=== PATIENT | female | born 1925 | race Caucasian/White ===

== ENCOUNTER → 2016-08-20 | Outpatient (CLI) | payer OTHER ==
--- NOTE | 2016-08-20 14:58 | DX ---
Chest, Two Views - August 20, 2016, at 1428 hours History: Left basilar rales and rhonchi. COPD. Dyspnea. R91.8. Comparison: April 2016. Findings: Cardiac silhouette is mildly enlarged. Atherosclerotic aorta. Previous right breast surge ry. Minimal linear scarring in the lingula. Calcified granulomata throughout both lungs and mediastin um. 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 No pneumonia, congestive heart failure, pleural effusion, or pneumothorax. Impression: 1. No definite pneumonia. 2. Calcified granulomata. 3. Mild cardiomegaly and atherosclerotic aorta without pulmonary edema, pleural effusion or pneumotho rax. Findings and recommendations discussed with Dr. Dev Odom, at 1450 hours today.
== END ==
LOC: FIMAGING 14:20
PROVIDERS: ATTEND Emergency Medicine
DX: R91.8 Other nonspecific abnormal finding of lung field (principal); J44.9 Chronic obstructive pulmonary disease, unspecified; Z85.3 Personal history of malignant neoplasm of breast; I70.0 Atherosclerosis of aorta; I51.7 Cardiomegaly

== ENCOUNTER 2016-08-21 13:42 | Inpatient (IN) | payer OTHER ==
--- NOTE | 2016-08-21 13:47 | EDPHY ---
H & P HPI/ROS: CHIEF COMPLAINT: Weakness HISTORY OF PRESENT ILLNESS: This is an 89-year-old female with a recent pelvic fracture was brought to the emergency room by ambulance. She reports diffuse weakness. Because of her recent pelvic fracture her family has been checking on her frequently, she currently lives alone and is independent. Today she was too weak to use her walker on her own and get to the bathroom. She feels somewhat short of breath. She has a history of COPD. She has not taken her medications today. She denies cough or chest pain. She has not had headache, sore throat, abdominal pain, vomiting, or diarrhea. She is not experiencing dysuria. Her only other complaint is of a dry mouth. REVIEW OF SYSTEMS: A ten point review of systems was performed and is negative with the exception of the items mentioned in the HPI. Source: Patient, EMS Exam Limitations: No limitations - Medical/Surgical History Hx Asthma: No Hx Chronic Respiratory Disease: Yes Hx Diabetes: Yes Hx Cardiac Disease: Yes Hx Renal Disease: No Hx Cirrhosis: No Hx Alcoholism: No Hx HIV/AIDS: No Hx Splenectomy or Spleen Trauma: No Other PMH: med- Afib, DM, peripheral neuropathy, high cholesterol, GERD, COPD, hypothyroidism, HTN, breast CA, diverticulitis. SURG- right lumpectomy - Social History Smoking Status: Former smoker Additional Social History: Lives independently. - Physical Exam Exam: General Appearance: Alert. Vital signs reviewed. Blood pressure 165/73, respiratory rate 16, heart rate 101, temperature 39.4, room air pulse ox 89%. Eyes: Pupils equal and round, no conjunctival injection, no discharge. Anicteric. ENT, Mouth: Mucous membranes are dry, no oropharyngeal erythema or edema. Neck: No lymphadenopathy, supple. Trachea midline. Respiratory: Right-sided rales/crackles, clear on the left. Cardiovascular: Irregularly irregular. Gastrointestinal: Abdomen is soft with mild diffuse tenderness, no guarding, no masses or organomegaly, bowel sounds normal. Skin: Warm and dry, no rashes on exposed skin, normal color. Back: Nontender to palpation over the thoracolumbar spine. No CVAT. Extremities: Bilateral lower extremity pitting edema, no calf tenderness. Neurological: Alert and oriented. Moving all four extremities easily and equally. Psychiatric: Normal affect. Constitutional: Initial Vital Signs Temperature (C) 39.4 C H 08/21/16 13:45 Heart Rate 101 H 08/21/16 13:45 Respiratory Rate 16 08/21/16 13:45 Blood Pressure 165/73 H 08/21/16 13:45 O2 Sat (%) 89 L 08/21/16 13:45 O2 Delivery Mode Nasal Cannula O2 (L/minute) 2 Allergies/Adverse Reactions: procaine Allergy (Verified 08/21/16 14:02) Sulfa (Sulfonamide Antibiotics) Allergy (Verified 08/21/16 14:02) Home Medications: Medication Instructions Recorded Anastrozole 08/21/16 Atenolol 08/21/16 Digoxin 08/21/16 Dulera 200 Mcg/5 Mcg Inhaler 08/21/16 GABAPENTIN 08/21/16 GLIPIZIDE 08/21/16 Levothyroxine 08/21/16 Omeprazole 08/21/16 Percocet 5-325 mg Tablet 08/21/16 SIMVASTATIN 08/21/16 Warfarin Sodium 08/21/16 Medical Decision Making ED Course/Re-evaluation: 89-year-old female with weakness and fever. Temperature of 39.4 [place] [id number]. She has right-sided crackles and was hypoxic for the paramedics. I suspect pneumonia. She meets criteria for sepsis normal vital signs and infection. She underwent serial evaluations. She herself has no complaints. She is not hypoxic on 2 L nasal cannula. She has remained alert and interactive. Her abdomen was re-examined it is very mildly diffusely tender without guarding or rebound. There is no focal abdominal tenderness. At this point I do not suspect an intra-abdominal infection. 3:30 p.m. Third examination performed. Awaiting results of UA. I reviewed her chest x-ray. She appears to have a right sided infiltrate. I have compared this x-ray to one done yesterday. Clinically, I think that she has pneumonia. Ceftriaxone and azithromycin ordered. She has received 1 L of normal saline IV. Lactic acid is normal. She does not meet criteria for severe sepsis. Influenza testing is negative. She recently moved her care from [place]. Her physician is now Dr. Bryan Roman. Other considerations in this setting of hypoxia include PE (she has a relatively recent pelvic fracture and has been using a walker, so is somewhat immobilized compared to her usual activity level). She does not have calf pain on exam. Negative Homans. She has a history of COPD and COPD exacerbation is another possibility. She is not experiencing chest pain and I do not suspect an acute coronary syndrome. Differential Diagnosis: Fever in adults including but not limited to pneumonia, urinary tract infection , viral syndrome, and influenza. - Data Points Laboratory Results: Laboratory Results 08/21/16 13:48 08/21/16 13:48 08/21/16 08/21/16 08/21/16 15:35 15:10 14:25 WBC RBC Hgb Hct MCV MCH MCHC RDW Plt Count MPV Neut % (Auto) Lymph % (Auto) [place] % (Auto) Eos % (Auto) Baso % (Auto) Nucleat RBC Rel Count Absolute Neuts (auto) Absolute Lymphs (auto) Absolute Monos (auto) Absolute Eos (auto) Absolute Basos (auto) Absolute Nucleated RBC Immature Gran % Immature Gran # PT INR APTT VBG Lactic Acid 1.7 mmol/L (0.7-2.1) Sodium Potassium Chloride Carbon Dioxide Anion Gap BUN Creatinine Estimated GFR Glucose Calcium Total Bilirubin Troponin I Urine Color YELLOW Urine Appearance HAZY Urine pH 7.0 (5.0-7.5) Ur Specific [place] 1.013 (1.002-1.030) Urine Protein NEGATIVE (NEGATIVE) Urine Ketones TRACE H (NEGATIVE) Urine Blood NEGATIVE (NEGATIVE) Urine Nitrate NEGATIVE (NEGATIVE) Urine Bilirubin NEGATIVE (NEGATIVE) Urine Urobilinogen NEGATIVE EU (0.2-1.0) Ur Leukocyte Esterase NEGATIVE (NEGATIVE) Ur Culture Indicated? NOT INDICATED (NI) Urine Glucose NEGATIVE (NEGATIVE) Influenza Typ A,B (DFA) NEGATIVE FOR FLU (NEGATIVE) 08/21/16 08/21/16 13:50 13:48 WBC 15.40 H 10^3/uL (3.80-9.50) RBC 4.13 L 10^6/uL (4.18-5.33) Hgb 13.4 g/dL (12.6-16.3) Hct 38.8 % (38.0-47.0) MCV 93.9 fL (81.5-99.8) MCH 32.4 pg (27.9-34.1) MCHC 34.5 g/dL (32.4-36.7) RDW 14.3 % (11.5-15.2) Plt Count 316 10^3/uL (150-400) MPV 8.6 L fL (8.7-11.7) Neut % (Auto) 85.4 H % (39.3-74.2) Lymph % (Auto) 6.9 L % (15.0-45.0) [place] % (Auto) 6.2 % (4.5-13.0) Eos % (Auto) 0.6 % (0.6-7.6) Baso % (Auto) 0.3 % (0.3-1.7) Nucleat RBC Rel Count 0.0 % (0.0-0.2) Absolute Neuts (auto) 13.13 H 10^3/uL (1.70-6.50) Absolute Lymphs (auto) 1.07 10^3/uL (1.00-3.00) Absolute Monos (auto) 0.96 H 10^3/uL (0.30-0.80) Absolute Eos (auto) 0.10 10^3/uL (0.03-0.40) Absolute Basos (auto) 0.05 10^3/uL (0.02-0.10) Absolute Nucleated RBC 0.00 10^3/uL (0-0.01) Immature Gran % 0.6 % (0.0-1.1) Immature Gran # 0.09 10^3/uL (0.00-0.10) PT 27.9 H SEC (12.0-15.0) INR 2.57 H (0.83-1.16) APTT 34.7 SEC (23.0-38.0) VBG Lactic Acid Sodium 137 mEq/L (134-144) Potassium 3.8 mEq/L (3.5-5.2) Chloride 98 mEq/L (97-110) Carbon Dioxide 29 mEq/l (22-31) Anion Gap 10 mEq/L (8-16) BUN 13 mg/dL (7-23) Creatinine 0.7 mg/dL (0.6-1.0) Estimated GFR > 60 Glucose 163 H mg/dL (70-100) Calcium 9.1 mg/dL (8.5-10.4) Total Bilirubin 1.2 mg/dL (0.1-1.4) Troponin I 0.025 ng/mL (0-0.034) Urine Color Urine Appearance Urine pH Ur Specific [place] Urine Protein Urine Ketones Urine Blood Urine Nitrate Urine Bilirubin Urine Urobilinogen Ur Leukocyte Esterase Ur Culture Indicated? Urine Glucose Influenza Typ A,B (DFA) Medications Given: Discontinued Medications Acetaminophen (Tylenol) 1,000 mg PO EDNOW ONE Stop: 08/21/16 13:59 Last Admin: 08/21/16 14:10 Dose: 1,000 mg Sodium Chloride (Ns) 1,000 mls @ 0 mls/hr IV ONCE ONE PRN Reason: Wide Open Stop: 08/21/16 14:35 Last Admin: 08/21/16 14:36 Dose: 1,000 mls Ceftriaxone Sodium/Dextrose (Rocephin 1 Gm (Premix)) 50 mls @ 100 mls/hr IV EDNOW ONE PRN Reason: Protocol Stop: 08/21/16 16:19 Last Admin: 08/21/16 16:09 Dose: 50 mls Departure - Departure Disposition: [facility] Inpatient Acute Clinical Impression: Pneumonia Qualifiers: Pneumonia type: due to unspecified organism Laterality: right Lung location: middle lobe of lung Qualifier Code: (J18.1) Lobar pneumonia, unspecified organism Condition: Good
[2016-08-21 13:58] LABS: % IMMATURE GRANULYOCYTES 0.6 % (0.0-1.1); ABSOLUTE IMMATURE GRANULOCYTES 0.09 10^3/uL (0.00-0.10); ADD DIFF? NO; ADD MORPH? NO; ADD SCAN? NO; ATYPICAL LYMPHOCYTE FLAG 0 (0-99); FRAGMENT RBC FLAG 0 (0-99); HEMATOCRIT 38.8 % (38.0-47.0); HEMOGLOBIN 13.4 g/dL (12.6-16.3); LEFT SHIFT FLG 10 (0-99); LIPEMIA HEMOLYSIS FLAG 90 (0-99); MEAN CELL HEMOGLOBIN 32.4 pg (27.9-34.1); MEAN CELL HEMOGLOBIN CONCENTR. 34.5 g/dL (32.4-36.7); MEAN CELL VOLUME 93.9 fL (81.5-99.8); MEAN PLATELET VOLUME 8.6 fL (8.7-11.7); PLATELET CLUMPS FLAG 10 (0-99); PLATELET COUNT 316 10^3/uL (150-400); RED BLOOD CELL COUNT 4.13 10^6/uL (4.18-5.33); RED CELL DISTRIBUTION WIDTH 14.3 % (11.5-15.2)
[2016-08-21] MEDS ORDERED: ACETAMINOPHEN 500 MG TAB PO ONE (13:58)
--- NOTE | 2016-08-21 14:05 | CPEKG ---
Heart Rate: 106 RR Interval: 566 QRSD Interval: 84 QT Interval: 292 QTC Interval: 388 QRS [place]: -38 T Wave [place]: 155 EKG Severity - ABNORMAL ECG - EKG Impression: ATRIAL FIBRILLATION, V-RATE 68-121 EKG Impression: LEFT AXIS DEVIATION EKG Impression: PROBABLE LVH WITH SECONDARY REPOL ABNRM EKG Impression: ANTERIOR Q WAVES, POSSIBLY DUE TO LVH Electronically Signed By: Denise Wolf 21-Aug-2016 17:54:00
[2016-08-21 14:18] LABS: INR 2.57 (0.83-1.16); PROTIME(PATIENT) 27.9 SEC (12.0-15.0)
[2016-08-21 14:19] LABS: APTT 34.7 SEC (23.0-38.0)
[2016-08-21 14:21] LABS: ANION GAP 10 mEq/L (8-16); BILIRUBIN,TOTAL 1.2 mg/dL (0.1-1.4); CALCIUM 9.1 mg/dL (8.5-10.4); CARBON DIOXIDE 29 mEq/l (22-31); CHLORIDE 98 mEq/L (97-110); CREATININE 0.7 mg/dL (0.6-1.0); GLOMERULAR FILTRATION RATE > 60; GLUCOSE 163 mg/dL (70-100); POTASSIUM 3.8 mEq/L (3.5-5.2); SODIUM 137 mEq/L (134-144)
[2016-08-21 14:33] LABS: TROPONIN I 0.025 ng/mL (0-0.034)
[2016-08-21] MEDS ORDERED: NS 1,000 ML IV ONE (14:34)
--- NOTE | 2016-08-21 15:34 | DX ---
AP and lateral chest x-ray 1417 hours. History: Chest pain with shortness of breath and weakness. Findings: Comparison to August 20, 2016. Heart size remains moderately enlarged. Pulmonary vasculature is not significant engorged. There is m ild increase in patchy infiltrate or atelectasis suspected right lung base probably involving right m iddle lobe. There is no additional possible consolidation or evidence of effusion. Lungs remain hyper expanded. Osseous structures are unchanged. Dense calcification is once again seen associate with th e right breast tissue possibly from that necrosis or ossified hematoma. Calcified right distal trache al lymph nodes are stable. Impression: 1. Stable moderate cardiomegaly. 2. Increase in patchy consolidation versus atelectasis right middle lobe. Rule out pneumonia. 3. 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
[2016-08-21 15:36] LABS: COLOR YELLOW; LEUKOCYTE ESTERASE,URINE NEGATIVE (NEGATIVE); NITRITE,URINE NEGATIVE (NEGATIVE)
[2016-08-21] MEDS ORDERED: AZITHROMYCIN IV 500 MG in D5W 250 ML IV ONE (15:50)
[2016-08-21] MEDS ORDERED: ONDANSETRON 4 MG/2 ML VIAL IVP PRN (19:07)
[2016-08-21] MEDS ORDERED: ONDANSETRON DISINTEGRATING 4 MG TAB PO PRN (19:07)
[2016-08-21] MEDS ORDERED: IPRATROPIUM/ALBUTEROL 3 ML DEYVIAL IH PRN (19:12)
[2016-08-21] MEDS ORDERED: WARFARIN SODIUM 5 MG TAB PO SCH (19:30)
[2016-08-21] MEDS: OXYCODONE/APAP 5/325 TAB PO PRN (19:47)
--- NOTE | 2016-08-21 20:16 | GHP ---
[f rep st] HISTORY AND PHYSICAL DATE OF ADMISSION: 08/21/2016 CHIEF COMPLAINT: Weakness. HISTORY OF PRESENT ILLNESS: This is an 89-year-old female who a couple of weeks ago sustained a fall which was determined a few days later to be a pelvic fracture. She had been doing okay since then a nd had been ambulating somewhat but probably less than usual. However, in the last couple of days jacquie stevens has had worsening overall weakness. She has now been unable to get out of bed much. She does admi t to some increasing shortness of breath. She has had an intermittent cough, but no sputum. She is feeling some chills. No nausea, vomiting, or diarrhea. No chest pain. REVIEW OF SYSTEMS: A 10-point review of systems was obtained and was negative. PAST MEDICAL HISTORY: 1. Atrial fibrillation, on Coumadin. 2. DVT, several months ago, while she was on Coumadin, and then it was suspected that she had been s ubtherapeutic for some time. 3. COPD, but not on any home oxygen. 4. Type 2 diabetes. 5. History of breast cancer. 6. Hypertension. 7. Peripheral neuropathy. PAST SURGICAL HISTORY: Lumpectomy and appendectomy. SOCIAL HISTORY: No smoking or alcohol. Lives with several family members. FAMILY HISTORY: Both parents are . PHYSICAL EXAM: VITAL SIGNS: Afebrile. Blood pressure 141/58, heart rate 91, oxygen saturation 97% on 2 L. GENERAL: The patient is well-developed, in no apparent distress. HEENT: Nonicteric sclera e. Moist mucous membranes. NECK: Supple. No thyromegaly. LUNGS: Good effort. Decreased breath sounds, but no rhonchi or wheezing. CARDIOVASCULAR: Irregularly irregular. No murmurs, rubs, or ga llops. ABDOMEN: Positive bowel sounds. Soft, nontender, nondistended. No hepatosplenomegaly. EXT REMITIES: No clubbing, cyanosis, or edema. SKIN: Without rash, dry and intact. NEUROLOGIC: Alert and oriented x3, moving all 4 extremities equally. PSYCHIATRIC: Normal mood and affect. LABS: White count is elevated at 15, hemoglobin 13, platelets 13. INR is 2.57. Lactic acid is norm al. IMAGING: Chest x-ray personally reviewed and interpreted shows right middle lobe pneumonia. EKG personally reviewed and interpreted shows atrial fibrillation. No ST-segment depression laterall y, probably repolarization. ASSESSMENT: This is an 89-year-old female presenting with community-acquired pneumonia. PLAN: 1. Community-acquired pneumonia: We will continue ceftriaxone and azithromycin that were prescribed by the emergency room. 2. Atrial fibrillation: The patient is rate controlled currently. We will continue her Coumadin. 3. Chronic obstructive pulmonary disease: She does not seem to be in any exacerbation currently. W e will continue albuterol as needed. 4. Type 2 diabetes: It appears to be mild and she is only on a small dose of glipizide and I would even question if that would be necessary in this age group. CODE STATUS: Full code but would only want to be on life support for 12 days. /[id number]/MODL
[2016-08-21] MEDS: ATORVASTATIN CALCIUM 20 MG TAB PO SCH (21:13)
[2016-08-21] MEDS: GABAPENTIN 300 MG CAP PO SCH (21:13)
[2016-08-21] MEDS: Mometasone/Formoterol [Dulera 200 Mcg/5 Mcg Inhaler] 2 PUFFS IH SCH (21:17)
[2016-08-22 05:05] LABS: % IMMATURE GRANULYOCYTES 0.6 % (0.0-1.1); ABSOLUTE IMMATURE GRANULOCYTES 0.08 10^3/uL (0.00-0.10); ADD DIFF? NO; ADD MORPH? NO; ADD SCAN? NO; ATYPICAL LYMPHOCYTE FLAG 0 (0-99); FRAGMENT RBC FLAG 0 (0-99); HEMATOCRIT 34.9 % (38.0-47.0); LEFT SHIFT FLG 10 (0-99); LIPEMIA HEMOLYSIS FLAG 90 (0-99); MEAN CELL HEMOGLOBIN 32.3 pg (27.9-34.1); MEAN CELL HEMOGLOBIN CONCENTR. 34.4 g/dL (32.4-36.7); MEAN CELL VOLUME 94.1 fL (81.5-99.8); MEAN PLATELET VOLUME 9.1 fL (8.7-11.7); PLATELET CLUMPS FLAG 0 (0-99); PLATELET COUNT 289 10^3/uL (150-400); RED BLOOD CELL COUNT 3.71 10^6/uL (4.18-5.33); RED CELL DISTRIBUTION WIDTH 14.4 % (11.5-15.2)
[2016-08-22] MEDS: LEVOTHYROXINE 25 MCG TAB PO SCH (05:07)
[2016-08-22 05:17] LABS: INR 2.61 (0.83-1.16); PROTIME(PATIENT) 28.2 SEC (12.0-15.0)
[2016-08-22 05:27] LABS: ALANINE AMINOTRANSFERASE 25 IU/L (9-52); ALBUMIN 2.9 g/dL (3.5-5.0); ALKALINE PHOSPHATASE 82 IU/L (38-126); ASPARTATE AMINOTRANSFERASE 18 IU/L (14-46); BILIRUBIN,TOTAL 0.8 mg/dL (0.1-1.4); CALCIUM 8.9 mg/dL (8.5-10.4); CARBON DIOXIDE 26 mEq/l (22-31); CHLORIDE 102 mEq/L (97-110); CREATININE 0.6 mg/dL (0.6-1.0); GLOMERULAR FILTRATION RATE > 60; GLUCOSE 125 mg/dL (70-100); SODIUM 136 mEq/L (134-144); TOTAL PROTEIN 5.5 g/dL (6.3-8.2)
[2016-08-22 06:49] LABS: ANION GAP 8 mEq/L (8-16); POTASSIUM 3.6 mEq/L (3.5-5.2)
--- NOTE | 2016-08-22 08:20 | WOCRNPDOC ---
WOCRN Advanced Assessment Note - Skin Integrity Problem, Advanced Assess Right Buttock Dressing Type: Open to Air Site Measurement - Head-to-Toe Length X Width X Depth (cm): 0.5x0.5x0.1 Skin Integrity Problem Comment: Small friction injury that is healing. No intervention necessary. Non erythematic coccyx and sacrum. Please reconsult prn.
[2016-08-22] MEDS: AZITHROMYCIN 250 MG TAB PO SCH (08:27)
[2016-08-22] MEDS: ATENOLOL 25 MG TAB PO SCH (08:27)
[2016-08-22] MEDS: GABAPENTIN 300 MG CAP PO SCH ×2 (08:27→21:44)
[2016-08-22] MEDS: ASPIRIN EC 81 MG TAB PO SCH (08:28)
[2016-08-22] MEDS: PANTOPRAZOLE SODIUM 40 MG TAB PO SCH ×2 (08:28→21:44)
[2016-08-22] MEDS: glipiZIDE 5 MG TAB PO SCH (08:28)
[2016-08-22] MEDS: ANASTROZOLE 1 MG TAB PO SCH (08:28)
[2016-08-22] MEDS: Mometasone/Formoterol [Dulera 200 Mcg/5 Mcg Inhaler] 2 PUFFS IH SCH ×2 (09:37→21:48)
[2016-08-22] MEDS: DIGOXIN 125 MCG TAB PO SCH (10:40)
--- NOTE | 2016-08-22 11:13 | HOSPPROG ---
Hospitalist Progress Note Assessment/Plan: Patient is an 89-year-old female sustained a fall. Today is my 1st encounter with the patient. Chart reviewed. #. Community-acquired pneumonia on azithromycin and ceftriaxone #. leukocytosis negative for the influenza #. atrial fibrillation/ persistent on oral anticoagulation with a therapeutic INR rate controlled #. COPD #. diabetes type 2 on glipizide #. recent pelvic fx PT and OT #. Plan: patient will require another midnight stay/ feeling poorly today. Subjective: Huma is feeling poorly. Objective: Vital Signs Temp Pulse Resp BP Pulse Ox 36.6 C 95 16 141/67 H 94 08/22/16 08:00 08/22/16 10:40 08/22/16 08:00 08/22/16 08:27 08/22/16 08:00 Laboratory Results 08/22/16 04:23 08/22/16 04:23 08/21/16 08/22/16 08/23/16 05:59 05:59 05:59 Intake Total 1553 Balance 1553 PT 28.2 SEC (12.0-15.0) H 08/22/16 04:23 INR 2.61 (0.83-1.16) H 08/22/16 04:23 - Physical Exam Constitutional: chronically ill appearing Eyes: PERRL Ears, Nose, Mouth, Throat: hearing normal Cardiovascular: irregularly irregular Respiratory: no respiratory distress, reduced air movement (bibasilar) Gastrointestinal: normoactive bowel sounds, soft, non-tender abdomen Skin: warm Musculoskeletal: no muscle tenderness Neurologic: AAOx3 Psychiatric: interacting appropriately, other (sleepy) ICD10 Worksheet Patient Problems: Problems Problem Status Diagnosed Pneumonia Acute
[2016-08-22] MEDS: OXYCODONE/APAP 5/325 TAB PO PRN (16:28)
[2016-08-22] MEDS ORDERED: WARFARIN SODIUM 5 MG TAB PO SCH (19:09)
[2016-08-22] MEDS: ATORVASTATIN CALCIUM 20 MG TAB PO SCH (21:44)
[2016-08-23] MEDS: ACETAMINOPHEN 325 MG TAB PO PRN ×2 (00:22→13:15)
[2016-08-23 04:45] LABS: % IMMATURE GRANULYOCYTES 0.7 % (0.0-1.1); ABSOLUTE IMMATURE GRANULOCYTES 0.09 10^3/uL (0.00-0.10); ADD DIFF? NO; ADD MORPH? NO; ADD SCAN? NO; ATYPICAL LYMPHOCYTE FLAG 0 (0-99); FRAGMENT RBC FLAG 0 (0-99); HEMOGLOBIN 12.4 g/dL (12.6-16.3); LEFT SHIFT FLG 30 (0-99); LIPEMIA HEMOLYSIS FLAG 80 (0-99); MEAN CELL HEMOGLOBIN 32.2 pg (27.9-34.1); MEAN CELL HEMOGLOBIN CONCENTR. 32.6 g/dL (32.4-36.7); MEAN CELL VOLUME 98.7 fL (81.5-99.8); MEAN PLATELET VOLUME 8.5 fL (8.7-11.7); PLATELET CLUMPS FLAG 0 (0-99); PLATELET COUNT 252 10^3/uL (150-400); RED BLOOD CELL COUNT 3.85 10^6/uL (4.18-5.33); RED CELL DISTRIBUTION WIDTH 14.6 % (11.5-15.2)
[2016-08-23] MEDS: Mometasone/Formoterol [Dulera 200 Mcg/5 Mcg Inhaler] 2 PUFFS IH SCH (09:34)
[2016-08-23] MEDS: LEVOTHYROXINE 25 MCG TAB PO SCH (09:52)
[2016-08-23] MEDS: PANTOPRAZOLE SODIUM 40 MG TAB PO SCH (09:53)
[2016-08-23] MEDS: AZITHROMYCIN 250 MG TAB PO SCH (09:53)
[2016-08-23] MEDS: ATENOLOL 25 MG TAB PO SCH (09:53)
[2016-08-23] MEDS: glipiZIDE 5 MG TAB PO SCH (09:53)
[2016-08-23] MEDS: ASPIRIN EC 81 MG TAB PO SCH (09:53)
[2016-08-23] MEDS: ANASTROZOLE 1 MG TAB PO SCH (09:53)
[2016-08-23] MEDS: GABAPENTIN 300 MG CAP PO SCH (09:57)
[2016-08-23] MEDS: DIGOXIN 125 MCG TAB PO SCH (10:45)
--- NOTE | 2016-08-23 11:20 | PDIAF ---
- Diagnosis Diagnosis: PNA Code Status: Full Code - Medication Management Discharge Medications: Medications to Continue on Transfer Albuterol [Ventolin Hfa Inhaler] 1 - 2 puffs IH Q4HRS PRN 08/21/16 [Last Taken Unknown] Anastrozole [Arimidex 1 mg (*)] 1 mg PO DAILY 08/21/16 [Last Taken Unknown] Aspirin EC [Aspirin EC 81 mg (*)] 81 mg PO DAILY 08/21/16 [Last Taken Unknown] Atenolol [Tenormin 25 mg (*)] 12.5 mg PO DAILY 08/21/16 [Last Taken Unknown] Digoxin [Lanoxin 125 mcg (RX)] 125 mcg PO DAILY10 08/21/16 [Last Taken Unknown] Gabapentin [Neurontin 300 MG (*)] 300 mg PO BID 08/21/16 [Last Taken Unknown] Herbals/Supplements -Info Only 1 ea PO DAILY 08/21/16 [Last Taken Unknown] Levothyroxine [Synthroid 25 mcg (*)] 25 mcg PO DAILY06 08/21/16 [Last Taken Unknown] Mometasone/Formoterol [Dulera 200 Mcg/5 Mcg Inhaler] 2 puffs IH BID 08/21/16 [ Last Taken Unknown] Multivitamins [Multivitamin (*)] 1 each PO DAILY 08/21/16 [Last Taken Unknown] Omeprazole [Prilosec 20 mg] 20 mg PO BID 08/21/16 [Last Taken Unknown] Simvastatin 40 mg PO HS 08/21/16 [Last Taken Unknown] Warfarin Sodium [Coumadin 5MG (*)] 2.5 mg PO SUTUTHSA 08/21/16 [Last Taken 08/20] Warfarin Sodium [Coumadin 5MG (*)] 5 mg PO MOWEFR 08/21/16 [Last Taken 08/19/16] glipiZIDE [Glipizide] 2.5 mg PO DAILY 08/21/16 [Last Taken Unknown] oxyCODONE/APAP 5/325 [Percocet 5/325 (*)] 1 - 2 tab PO HS PRN 08/21/16 [Last Taken Unknown] Acetaminophen [Tylenol 325mg (*)] 650 mg PO Q4HRS PRN #0 tab 08/23/16 [Last Taken Unknown] Azithromycin [Zithromax] 250 mg PO DAILY #2 tab 08/23/16 [Last Taken Unknown] Ipratropium/Albuterol [Duoneb (*)] 3 ml IH Q6HRS PRN #0 deyvial 08/23/16 [Last Taken Unknown] Ondansetron HCl Pf [Zofran 4 mg Inj (*)] 4 mg IVP Q4HRS PRN #0 vial 08/23/16 [ Last Taken Unknown] Ondansetron Odt [Zofran Odt 4 mg (*)] 4 mg PO Q4HRS PRN #0 tab 08/23/16 [Last Taken Unknown] levOFLOXACIN [levAQUIN (*)] 750 mg PO DAILY #7 tab 08/23/16 [Last Taken Unknown] Discharge Medications: Refer to the Discharge Home Medication list for PRN reason. PICC Care - Routine: N/A - Orders Services needed: Registered Nurse, Physical Therapy, Occupational Therapy - Labs/Radiology PT/INR Date: 08/25/16 - Follow Up Care Current Providers and Referrals: Karuna Mtota MD [Primary Care Provider] - As per Instructions
[2016-08-23 12:26] VITALS: BP 121/67; PULSE 98; RESP 14; TEMP 98; O2SAT 94
--- NOTE | 2016-08-23 21:57 | GDS ---
[f rep st] DISCHARGE SUMMARY DISCHARGE DIAGNOSES: 1. Community-acquired pneumonia. 2. Leukocytosis. 3. History of atrial fibrillation, persistent. 4. Chronic obstructive pulmonary disease. 5. Diabetes mellitus type 2. 6. History of pelvic fracture. 7. History of a deep vein thrombosis. 8. History of breast cancer. CONSULTATIONS: Wound Care. PHYSICAL EXAM: GENERAL: The patient is alert and oriented, in no acute distress. VITAL SIGNS: Afe brile at 36.6, pulse is 98, respiratory rate is 14, blood pressure is 121/67, she is saturating 94% o n 2 L. HEENT: Normocephalic, atraumatic. Mucosal membranes are moist. I have seen and evaluated the patient on the day of discharge. HOSPITAL COURSE: The patient is an 89-year-old female who presented to the hospital with complaints of weakness. She was evaluated and diagnosed with: 1. Community-acquired pneumonia. During this hospitalization, she was treated with azithromycin, as well as Rocephin. Her azithromycin has been continued and she has been transitioned to oral Levaqui n. She will continue these for a 7-day course of antibiotic therapy. 2. Leukocytosis. This is an acute response to the patient's infectious process. 3. History of persistent atrial fibrillation. The patient is chronically anticoagulated on Coumadin . Her INR today is within therapeutic range and she has no signs of complications. 4. History of COPD. This does appear to be stable at this time. 5. History of diabetes mellitus type 2. We will continue her glipizide as previously prescribed. 6. Recent pelvic fracture. Physical therapy and occupational therapy will continue at the [facility] facility. 7. History of deep vein thrombosis. The patient required tPA with regard to this condition. She is currently anticoagulated and it is recommended to remain anticoagulated chronically. 8. History of breast cancer. The patient requires followup in the outpatient setting with oncologjonathan hernandez of her choice. I have discussed this with her son who is in agreement with this plan and will arra nge this followup in the outpatient setting. DISPOSITION: The patient will be discharged to [facility] for further rehab ilitation and management. PENDING STUDIES: There are no pending studies. DISCHARGE MEDICATIONS: Please refer to the electronic medical record. I have provided the patient w ith new medications of azithromycin as well as Levaquin. FOLLOWUP: 1. Followup will be with patient's primary care physician, Karuna Motta. 2. She will also have her INR checked in 2 days at the residential facility. TIME SPENT: I have spent greater than 35 minute in the care, coordination, and management of the pat micant's disposition. I have discussed at length with patient's son Obey. He was in agreement with this plan. I update d him on her medical condition and recommended followup in the outpatient setting. /[id number]/MODL
== END 2016-08-23 14:17 | DRG 195 ==
LOC: EDUNIT# → F3E 17:17
PROVIDERS: ADMIT Internal Medicine; ATTEND Student in an Organized Health Care Education/Training Program
DX: J18.9 Pneumonia, unspecified organism (principal); J44.9 Chronic obstructive pulmonary disease, unspecified; I48.91 Unspecified atrial fibrillation; E11.9 Type 2 diabetes mellitus without complications; K21.9 Gastro-esophageal reflux disease without esophagitis; E03.9 Hypothyroidism, unspecified; I10 Essential (primary) hypertension; Z86.718 Personal history of other venous thrombosis and embolism; Z85.3 Personal history of malignant neoplasm of breast
CPT/HCPCS: 96365; 97161-GP; 97165-GO; G8978-GP-CJ; G8979-GP-CI; G8987-GO-CJ; G8988-GO-CI; J0456; J0696

== ENCOUNTER 2016-08-31 10:59 | Inpatient (IN) | payer OTHER ==
--- NOTE | 2016-08-31 11:07 | EDPHY ---
H & P Time Seen by Provider: 08/31/16 11:07 HPI/ROS: CHIEF COMPLAINT: Painful left foot HISTORY OF PRESENT ILLNESS: Patient had history of DVT but also has history of arterial embolectomy in April at [facility] in [place]. She has atrial fibrillation and was hospitalized at [facility] because she was [place] but is not currently. Her INR was recently noted to be 7 and her Coumadin was decreased but has not been checked lately. Of note she also had an episode yesterday of 10-15 minutes right facial droop and slurred speech and drooling and difficulty speaking which has not recurred since then. Today she presents with left ankle and foot pain and colder temperature in that foot. Symptoms are moderate. Does feel perhaps similar to last April. She can still feel and move the foot. No chest pain or shortness of breath. Records from [facility] reviewed personally by myself at 11:56 a.m.. 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 REVIEW OF SYSTEMS: Eye: no change in vision ENT: no sore throat Cardiac: no chest pain or syncope Pulmonary: no cough or SOB Abdomen: no vomiting, diarrhea, abdominal pain Musculoskeletal: no back pain or neck pain, left foot pain as above. Skin: no rash Neuro: no headache, neurologic symptoms of possible TIA as noted above. Constitutional: no fever : no urinary symptoms A comprehensive 10 point review of systems is otherwise negative aside from elements mentioned in the history of present illness. PAST MEDICAL HISTORY: Discussed with [place] at 1124am, 05/07/16 at [facility] for arterial thrombectomy, atrial fibrillation on Coumadin, DVT, appendectomy, COPD, type 2 diabetes, breast cancer history. Hypertension and neuropathy peripheral. Admission H&P dated 08/21/2016 personally reviewed by myself. Social history: Here with family. Current resident at [facility]. General Appearance: Alert and conversant, cooperative. Eyes: No scleral icterus. ENT, Mouth: Normal mucous membranes. Respiratory: Normal respiratory effort, breath sounds equal, lungs are clear to auscultation. Cardiovascular: Irregular rate and rhythm. Gastrointestinal: Abdomen is soft and non tender. Neurological: Alert and oriented x3. Normally conversant. Face symmetric, normal movement and sensation in all extremities. Skin: Warm and dry, no rashes. Musculoskeletal: Left foot is cool to the touch but compartments are soft. Skin is not red or hot. It dorsalis pulse is present with Doppler on the left foot. No bony tenderness or deformity. Psychiatric: Not agitated. Emergency Department course/MDM: Doppler pulse present in the left foot. INR noted subtherapeutic at 1.6. TIA workup ordered to include CT of the head and angiography of the neck if possible, as well as angiography of the lower extremity. Will likely need bridging heparin therapy until she is therapeutic as suspicion for multiple embolic events recently. 1335: Angiography shows left popliteal occlusion reported to me by Dr. Grullon at 1:14 p.m. Results discussed, heparin discussed and consented and ordered. Dr. Grullon did talk to Dr. Tylor Hopkins about interventional Radiology regarding this patient, he will come to see the patient. IV heparin bolus started in the emergency department and continuous drip. Results discussed with the family. Dr. Hopkins came to the emergency department to evaluate the patient personally. Dr. Chambers will consult surgically if needed. Smoking Status: Former smoker Constitutional: Initial Vital Signs Temperature (C) 36.8 C 08/31/16 10:59 Heart Rate 86 08/31/16 10:59 Respiratory Rate 16 08/31/16 10:59 Blood Pressure 140/83 H 08/31/16 10:59 O2 Sat (%) 91 L 08/31/16 10:59 O2 Delivery Mode Nasal Cannula O2 (L/minute) 3 Allergies/Adverse Reactions: latex Allergy (Verified 08/31/16 11:26) procaine Allergy (Verified 08/21/16 14:02) procaine HCl [From Novocain] Allergy (Verified 08/31/16 11:26) Sulfa (Sulfonamide Antibiotics) Allergy (Verified 08/21/16 14:02) Home Medications: Medication Instructions Recorded Albuterol [Ventolin Hfa Inhaler] 1 - 2 puffs IH Q4HRS PRN 08/21/16 Anastrozole [Arimidex 1 mg (*)] 1 mg PO DAILY 08/21/16 Aspirin EC [Aspirin EC 81 mg (*)] 81 mg PO DAILY 08/21/16 Atenolol [Tenormin 25 mg (*)] 12.5 mg PO DAILY 08/21/16 Digoxin [Lanoxin 125 mcg (RX)] 125 mcg PO DAILY10 08/21/16 Gabapentin [Neurontin 300 MG (*)] 300 mg PO BID 08/21/16 Herbals/Supplements -Info Only 1 ea PO DAILY 08/21/16 Levothyroxine [Synthroid 25 mcg 25 mcg PO DAILY06 08/21/16 (*)] Mometasone/Formoterol [Dulera 200 2 puffs IH BID 08/21/16 Mcg/5 Mcg Inhaler] Multivitamins [Multivitamin (*)] 1 each PO DAILY 08/21/16 Omeprazole [Prilosec 20 mg] 20 mg PO BID 08/21/16 Simvastatin 40 mg PO HS 08/21/16 glipiZIDE [Glipizide] 2.5 mg PO DAILY 08/21/16 oxyCODONE/APAP 5/325 [Percocet 1 - 2 tab PO HS PRN 08/21/16 5/325 (*)] Acetaminophen [Tylenol 325mg (*)] 650 mg PO Q4HRS PRN #0 tab 08/23/16 Ipratropium/Albuterol [Duoneb (*)] 3 ml IH Q6HRS PRN #0 deyvial 08/23/16 levOFLOXACIN [levAQUIN (*)] 750 mg PO DAILY #7 tab 08/23/16 Sennosides/Docusate Sodium 1 each PO BID 08/31/16 [Senna-Docusate Sodium Tablet] Warfarin Sodium [Coumadin 2MG (*)] 2 mg PO DAILY16 08/31/16 Medical Decision Making - Diagnostics EKG Interpretation: 12-lead EKG interpreted by me; official reading is in trace master. My interpretation is AFib rate of 73, late anterior RS transition, lateral T-wave inversions. Imaging: Noncontrast head CT negative per Dr. Tylor Hopkins at 1:43 p.m. Ultrasound shows no evidence of DVT. Angiography shows left popliteal artery occlusion reported by Dr. Grullon. There is collateral flow present. Differential Diagnosis: Differential for leg pain considered including but not limited to DVT, arterial occlusion, compartment syndrome, cellulitis. Consult/Admit Bed Type: [facility] 1328, [facility] 1341 Critical Care Time: Critical care time spent by me, Dr. Hernandes, exclusively with the care of this patient was 35 minutes, exclusive of PA or SHIPYARD PAINTER APPRENTICE time and exclusive of separate procedures. The organ system at risk was vascular and I ordered multiple diagnostics including CT angiography, IV heparin bolus and drip, discussion with interventionalist Radiology physician , hospitalist Dr. Mccabe and radiologist Dr. Grullon, to stabilize the patient and prevent worsening of the patient's condition. - Data Points Laboratory Results: Laboratory Results 08/31/16 11:04 08/31/16 11:04 08/31/16 11:04 WBC 19.15 H 10^3/uL (3.80-9.50) RBC 3.96 L 10^6/uL (4.18-5.33) Hgb 12.7 g/dL (12.6-16.3) Hct 36.4 L % (38.0-47.0) MCV 91.9 fL (81.5-99.8) MCH 32.1 pg (27.9-34.1) MCHC 34.9 g/dL (32.4-36.7) RDW 15.9 H % (11.5-15.2) Plt Count 552 H 10^3/uL (150-400) MPV 8.6 L fL (8.7-11.7) Neut % (Auto) Not Reported Lymph % (Auto) Not Reported [place] % (Auto) Not Reported Eos % (Auto) Not Reported Baso % (Auto) Not Reported Nucleat RBC Rel Count 0.0 % (0.0-0.2) Absolute Neuts (auto) Not Reported Absolute Lymphs (auto) Not Reported Absolute Monos (auto) Not Reported Absolute Eos (auto) Not Reported Absolute Basos (auto) Not Reported Absolute Nucleated RBC 0.00 10^3/uL (0-0.01) Immature Gran % Not Reported Seg Neutrophils % 83 % Band Neutrophils % 4 % Lymphocytes % 3 % Monocytes % 6 % Basophils % 1 % Metamyelocytes % 3 % Immature Gran # Not Reported Absolute Seg Neuts 15.89 H 10^/uL (1.70-6.50) Absolute Band Neuts 0.77 H 10^3/uL (0.00-0.70) Absolute Lymphocytes 0.57 L 10^3/uL (1.00-3.00) Absolute Monocytes 1.15 H 10^3/uL (0.30-0.80) Absolute Basophils 0.19 H 10^3/uL (0.02-0.10) Absolute Metamyelocyte 0.57 H 10^3/mL (0.00-0.00) Toxic Granulation PRESENT H Platelet Estimate INCREASED H (ADEQ) Polychromasia 1+ H PT 19.7 H SEC (12.0-15.0) INR 1.67 H (0.83-1.16) APTT 30.7 SEC (23.0-38.0) Sodium 134 mEq/L (134-144) Potassium 3.8 mEq/L (3.5-5.2) Chloride 92 L mEq/L (97-110) Carbon Dioxide 32 H mEq/l (22-31) Anion Gap 10 mEq/L (8-16) BUN 13 mg/dL (7-23) Creatinine 0.6 mg/dL (0.6-1.0) Estimated GFR > 60 Glucose 182 H mg/dL (70-100) Calcium 8.8 mg/dL (8.5-10.4) Troponin I 0.029 ng/mL (0-0.034) Medications Given: Discontinued Medications Heparin Sodium (Porcine) (Heparin Injection) 0 unit IVP EDNOW ONE PRN Reason: Protocol Stop: 08/31/16 13:31 Last Admin: 08/31/16 13:52 Dose: 3,000 units Heparin Sodium (Porcine) (Heparin 50 Units/Ml (Premix)) 500 mls @ 0 mls/hr IV EDNOW ONE; Per Protocol PRN Reason: Protocol Stop: 08/31/16 13:31 Last Admin: 08/31/16 13:56 Dose: 500 mls Departure - Departure Disposition: [facility] In[facility] Acute Clinical Impression: Popliteal artery occlusion, left TIA (transient ischemic attack) Qualifiers: Transient cerebral ischemia type: unspecified Qualifier Code: (G45.9) Transient cerebral ischemic attack, unspecified Condition: Serious
[2016-08-31 11:17] VITALS: TEMP 98.2
[2016-08-31 11:33] LABS: ADD DIFF? YES; ADD MORPH? NO; ADD SCAN? NO; ATYPICAL LYMPHOCYTE FLAG 10 (0-99); FRAGMENT RBC FLAG 0 (0-99); HEMATOCRIT 36.4 % (38.0-47.0); HEMOGLOBIN 12.7 g/dL (12.6-16.3); LEFT SHIFT FLG 30 (0-99); LIPEMIA HEMOLYSIS FLAG 90 (0-99); MEAN CELL HEMOGLOBIN 32.1 pg (27.9-34.1); MEAN CELL HEMOGLOBIN CONCENTR. 34.9 g/dL (32.4-36.7); MEAN CELL VOLUME 91.9 fL (81.5-99.8); MEAN PLATELET VOLUME 8.6 fL (8.7-11.7); PLATELET CLUMPS FLAG 10 (0-99); PLATELET COUNT 552 10^3/uL (150-400); RED BLOOD CELL COUNT 3.96 10^6/uL (4.18-5.33); RED CELL DISTRIBUTION WIDTH 15.9 % (11.5-15.2)
[2016-08-31 11:38] LABS: APTT 30.7 SEC (23.0-38.0); INR 1.67 (0.83-1.16); PROTIME(PATIENT) 19.7 SEC (12.0-15.0)
[2016-08-31 11:42] LABS: ANION GAP 10 mEq/L (8-16); CALCIUM 8.8 mg/dL (8.5-10.4); CARBON DIOXIDE 32 mEq/l (22-31); CHLORIDE 92 mEq/L (97-110); CREATININE 0.6 mg/dL (0.6-1.0); GLOMERULAR FILTRATION RATE > 60; GLUCOSE 182 mg/dL (70-100); POTASSIUM 3.8 mEq/L (3.5-5.2); SODIUM 134 mEq/L (134-144)
[2016-08-31 11:54] LABS: TROPONIN I 0.029 ng/mL (0-0.034)
--- NOTE | 2016-08-31 11:57 | CPEKG ---
Heart Rate: 73 RR Interval: 822 QRSD Interval: 86 QT Interval: 352 QTC Interval: 388 QRS [place]: -29 T Wave [place]: 169 EKG Severity - ABNORMAL ECG - EKG Impression: ATRIAL FIBRILLATION, V-RATE 60-89 EKG Impression: BORDERLINE LEFT AXIS DEVIATION EKG Impression: CONSIDER ANTEROSEPTAL INFARCT EKG Impression: REPOL ABNRM SUGGESTS ISCHEMIA, LATERAL LEADS Electronically Signed By: Chino Hernandes 31-Aug-2016 12:42:11
[2016-08-31 12:03] LABS: PLATELET ESTIMATE INCREASED (ADEQ); POLYCHROMASIA 1+; TOXIC GRANULATION PRESENT
[2016-08-31] MEDS ORDERED: IOPAMIDOL (ISOVUE 370) 75 ML BTL IV ONE (12:12)
[2016-08-31] MEDS ORDERED: HEPARIN 10,000 UNIT/10 ML MDV IVP ONE (13:30)
[2016-08-31] MEDS ORDERED: HEPARIN/DEXTROSE 500 ML IV ONE (13:30)
--- NOTE | 2016-08-31 13:40 | US ---
Ultrasound Venous Doppler Study of the left Lower Extremity History: Left leg pain; evaluate for deep vein thrombosis. Technique: High frequency transducer was used for imaging and Doppler study of the veins of the left lower extremity. Pulsed Doppler and color Doppler were utilized, along with various maneuvers to ass ess flow in the veins. Findings: The deep veins of the left lower extremity are normally compressible between the groin and the upper calf and have normal Doppler waveforms within them. No venous thrombosis is identified. Impression: No evidence of deep vein thrombosis in the left lower extremity.
--- NOTE | 2016-08-31 13:44 | CT ---
CT Brain (Without Contrast) History: Episode of facial droop and slurred speech S today and year-old female with a history of at rial fibrillation. Technique: Axial computed tomographic images of the brain are obtained from the base to the vertex w ithout contrast. Images are obtained at 5 mm thickness and reformatted at 1.5 mm. Sagittal and christian l reformations are performed and the study is reviewed at multiple window/level settings. Dose reduct ion techniques were utilized. Findings: Ventricles, cisterns, and sulci are prominently widened consistent with atrophy. There is no hydrocephalus, midline shift/herniation, or epidural/subdural hematoma. No intraparenchymal hemorr tamir or mass effect is identified. Extensive White matter low-attenuation changes are seen in periven tricular in subcortical regions bilaterally No definite acute cortical ischemia is identified. Cerebr ovascular atherosclerosis is identified. Bone windows demonstrate no displaced fractures. Paranasal s inuses and mastoid air cells are clear. Impression: 1. Elderly brain with atrophy and extensive White matter low-attenuation presumably small vessel isch emic disease. 2. No definite acute cortical ischemia or hemorrhage.
--- NOTE | 2016-08-31 15:09 | CT ---
CT Angiogram of the Abdomen and Pelvis, With Bilateral Lower Extremity Runoff Angiogram Indication: Painful cool left leg. Technique: 1.25-mm thin axial images are performed from the lung bases to the ankles during intraven ous contrast injection of 120 mL of Isovue-370. Coronal and parasagittal reformatted images are revi ewed on a separate workstation. Dose reduction techniques were utilized. Comparison: None. Findings CT Angiogram of the Abdomen and Pelvis: Minimal plaque is present in the descending thoracic aorta. Celiac axis is patent. No splenic clot. Heterogeneous enhancement is likely due to the timing of the contrast. Mild ostial narrowing of the SMA is present from eccentric plaque. The renal arteries are p atent. The infrarenal abdominal aorta is nonaneurysmal. The NORI is patent. The right common external and internal iliac arteries are patent. The left common internal and external iliac arteries are patent. Runoff Angiogram: Right Runoff: The right common femoral, profunda femoral, and superficial femoral arteries are relati vely clear of plaque. Minimal atherosclerotic disease is present. The popliteal artery is patent. Bel ow-knee runoff is three-vessel to the distal calf. Mild diffuse below-knee atherosclerotic disease is present. Left Runoff: The left common femoral, profunda femoral, and superficial femoral arteries are patent. There is abrupt occlusion of the popliteal artery. There is some reconstitution of the below-knee art steven at the takeoff of the anterior tibial artery and some collateralized flow to the foot via small m ildly diffusely diseased PT, peroneal and anterior tibial arteries. Distally, the anterior tibial art steven may also contain some clot or flow may be slow in delaying the transit of contrast as it appears to fill slightly better on the delayed imaging. Some distal occlusion or embolic material is not comp letely excluded in the distribution of the anterior tibial artery below knee from the distal calf thr ough the foot. The posterior tibial artery is much better visualized on the delayed imaging as is the peroneal artery. Flow in the foot is incompletely evaluated due to small vessel and poor inflow. CT Abdomen and Pelvis: There is a moderate-sized pleural effusion on the right. There is atelectatic change of the right middle and right lower lobe. The heart size is mildly enlarged with right atrial and left atrial dilation. The liver is unremarkable. Heterogeneous enhancement of the spleen is pres ent. The kidneys enhance symmetrically. 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 Small bowel and colon are unremarkable. Trace free fluid is in the pelvis. Bones exhibit moderate degenerative changes. Impressions: 1. Moderate-sized right effusion and pneumonia of the right middle and right lower lobes. 2. Mildly dilated right atrial and left atrial chambers suggesting some chronic CHF. 3. Abrupt occlusion of the popliteal artery, left side, at the level of the knee joint with reconstit ution of the PT, peroneal and AT on delayed imaging. There may be a distal occlusion of the anterior tibial artery, acuity indeterminate.
--- NOTE | 2016-08-31 15:14 | IR ---
Radiology Consult Interventional Radiology Clinical Indication: Acute arterial embolic occlusion with left cool foot. History of present illness: 89-year-old female who is 3 months status post popliteal embolectomy at [facility]. She presents acutely today with a cool painful foot. After further clinical probi ng, this actually is probably 24 hours old as she states that it is better than yesterday. The patien t also had a witnessed documented TIA with drooling, weakness, and facial droop 24 hours ago. She pre sents to the ER today as the TIA symptoms seem to have resolved yesterday, but she has a painful cool foot. I have reviewed the CTA of her lower extremity which shows a popliteal occlusion, likely embolic, wi th reconstitution of some of the below-knee vasculature but mild diffuse disease below knee and possi ble old versus acute occlusion of the distal anterior tibial artery into the popliteal artery. That v essel is slightly more diseased than the reconstituted posterior tibial and peroneal arteries. I had a long discussion with the family about options including transferring the patient for repeat e mbolectomy, anticoagulation at this point with heparin alone, or intraarterial thrombolysis. Given th e less than 24-hour period from her TIA to the time I am seeing her in the Emergency Room, I am uncom fortable starting intraarterial thrombolysis at this time. We will obtain an MRI to evaluate if the p atient has acute ischemic changes from the TIA yesterday. At this point, I have a call out to a vascu lar surgeon at [facility] who is front office medical assistant for this weekend about the possibility of transferring the pa tient if the patient needs an acute embolectomy. On physical examination, motor and sensation are intact, although the patient does complain of some p [id number], numbness, and tingling. Strength is equal bilaterally. Weakly Doppler pulses were do cumented by the Emergency Room physician. I had a brief discussion with Dr. Mccabe and Dr. Chino Hernandes about following options mentioned above. A t this point, we will admit the patient to the hospital service on full dose heparin, perform serial lactate draws every 6 hours, and obtain an MRI of the brain to evaluate for the level of acute ischem ia from yesterday's transient ischemic event. If the patient does not have acute ischemia, then we wi ll consider thrombolytics as an option. The patient is not densely ischemic at this time, so we do page ve some time to anticoagulate with heparin and reevaluate the patient. In the interval time I0 gypsy jenkins a call to the vascular surgeon from [facility] who previously operated on this area conclus ion 3 months ago. Transferring the patient may be difficult as the patient is no longer under [place] insurance plan. Thank you for allowing me to take part in the care of this very pleasant 89-year-old female. She and her daughter are fully aware of all of their options. Consultation time: 30 minutes. Addendum after discussing the above clinical situation with the vascular surgeon at [facility] the decision was made to transfer the patient for embolectomy. I discussed the above with Dr. Gabino martins who is where of the above and willing to accept the patient. He feels that reoperative embolectomy will be the safest course for this patient given the recent intracranial ischemia and risks of bleed with thrombolysis.
[2016-08-31] MEDS ORDERED: IPRATROPIUM/ALBUTEROL 3 ML DEYVIAL IH PRN (15:15)
[2016-08-31] MEDS ORDERED: OXYCODONE/APAP 5/325 TAB PO PRN (15:15)
[2016-08-31] MEDS ORDERED: HEPARIN 10,000 UNIT/10 ML MDV IVP PRN (15:18)
[2016-08-31] MEDS ORDERED: ONDANSETRON 4 MG/2 ML VIAL IVP PRN (15:19)
[2016-08-31] MEDS ORDERED: ZOLPIDEM TARTRATE 5 MG TAB PO PRN (15:19)
[2016-08-31] MEDS ORDERED: ACETAMINOPHEN 325 MG TAB PO PRN (15:19)
[2016-08-31] MEDS ORDERED: NS 1,000 ML IV SCH (15:30)
[2016-08-31] MEDS ORDERED: HEPARIN/DEXTROSE 500 ML IV SCH (15:30)
[2016-08-31] MEDS ORDERED: ALBUTEROL 60 PUFFS/8 GM MDI IH PRN (15:30)
--- NOTE | 2016-08-31 15:33 | HOSPPROG ---
Hospitalist Progress Note Assessment/Plan: HISTORY AND PHYSICAL ADMISSION NOTE CC: Right-sided facial numbness left-sided foot numbness and cold temperature HISTORY: This patient was discharged from this hospital after being admitted on the 4th of this month with community-acquired pneumonia. She was overall doing well but was transferred from here to [facility] for ongoing rehabilitation. She feels like she is recovering well from her pneumonia. She still has a little bit of cough, probably does not have any more than her usual chronic dyspnea. She is not having fevers, chest pain, or other signs that her pneumonia is not resolving. Last night at [facility], with her family present, the patient had abrupt onset of right-sided facial numbness and tingling along with slurred speech. This is all suggestive of a left-sided stroke type episode. She says the symptoms had completely resolved within approximately 15 minutes. Her family who is here corroborates this part of the story. She has had no recurrent episodes of stroke-like symptoms since that time. This is her 1st ever stroke-like episode. There was no headache, visual change, palpitations, angina, fever symptoms, or symptoms of hypoglycemia. Also last night she had onset of left-sided coldness and numbness in the foot and ankle along with inability to move the foot and ankle. She in the family note that the foot actually felt cold to touch. This was not really painful per se. The symptom persists and is still present now. However she does feel like it has improved and says that now she is able to move her foot fairly normally. Of specific note the patient does have chronic atrial fibrillation and is on Coumadin. In addition she has a history of arterial thrombectomy in the same left foot done at [facility] a year and a half ago. This was a interventional radiology procedure. Her INR when she was here earlier this month was 2.5. She says she has been taking her Coumadin daily. She has not had nausea or vomiting to interfere with the medication or its absorption. Also the patient does have a history of diabetes and is on oral hypoglycemics, but has had no symptomatic episodes suggesting hypoglycemia. ROS: 10 system comprehensive review of systems reveals no other acute abnormalities PAST MEDICAL HISTORY: Peripheral vascular disease with acute arterial thrombus to the left leg and foot with Interventional Radiology thrombectomy in 2014 Chronic atrial fibrillation on chronic Coumadin therapy Recent acute community-acquired pneumonia treated here earlier this month COPD, without home oxygen use Type 2 diabetes mellitus Diabetic peripheral neuropathy Breast cancer status post lumpectomy and lymphadenectomy The recent minor pelvic fracture FAMILY MEDICAL HISTORY: Her parents are , does not sound like there is other peripheral vascular disease in the family nor any history of thromboembolic disease otherwise SOCIAL HISTORY: Lives at [facility] No smoking or tobacco use She has several family with members with her at the bedside neuro quite supportive MEDICATIONS: Her medicine list has been forwarded from [facility], reviewed and reconciled by our pharmacist. I have reviewed this reconciled list and ordered appropriate medications at this time. Notably does include the Coumadin as stated. Also she is still taking Levaquin for her pneumonia and believe this would be day 10 of that treatment Her medicine allergies are listed in the chart and notably do include latex PHYSICAL EXAMINATION: Vital Signs: Stable without fever Painter Supervisor: Atrial fibrillation Examination: General: alert, oriented, good mentation, relaxed Neurologic: normal speech/language, normal paint stockman, no focal weakness, pupils round equal and reactive at 3 mm, no pronator drift Skin: warm, dry, good color, no rash HEENT: normal Neck: no mass or jvd Resps: relaxed Lungs: clear breath sounds Heart: irregular, no murmur Abdomen: soft, nondistended, nontender, +BS, no mass Upper Extremities: normal Lower Extremities: Her right foot has good color, good warmth, and easily palpable dorsalis pedis pulse minimally palpable posterior tibial pulse with some chronic arthritic changes. On the left her popliteal pulse is bounding. There is distinct: This to the skin from approximately mid calf down to the distal toes. This skin temperature is not as cold as I was expecting based on the description from the ER physician. I believe I can actually palpate barely a dorsalis pedis pulse but I cannot palpate a posterior tibial pulse on the left. There is no necrotic or devitalized appearing tissue and the color of the foot and ankle at this time is actually fairly good. She has again minor arthritic deformities. No Bleeding or bruising is noted IV site: looks normal LABORATORY DATA: INR 1.6, creatinine 0.6, otherwise unremarkable RADIOLOGY STUDIES: CT scan of head noncontrast from the ER, my personal review of images and interpretation: I see no evidence of acute ischemia, bleeding, or other intracranial abnormalities. There is some atrophy CT scan of the chest abdomen legs runoff, with angiographic technique, my personal review and interpretation of images: There is some irregular noncritical plaque in the abdominal aorta. No aneurysm there. The popliteal artery disappears behind the knee with some soup very small collaterals present. This does not show any reconstitution of these collaterals to the distal vessels partly due to extent of the images ASSESSMENT: DIAGNOSES: # ACUTE ISCHEMIC CHANGES OF THE LEFT DISTAL LEG AND FOOT, IN THE SETTING OF ATRIAL FIBRILLATION WITH INADEQUATE ANTICOAGULATION # STATUS POST TIA LAST EVENING SUGGESTIVE OF LEFT MIDDLE CEREBRAL ARTERY INVOLVEMENT, IN THE SETTING OF ATRIAL FIBRILLATION WITH INADEQUATE ANTICOAGULATION # CHRONIC ATRIAL FIBRILLATION, RATE CONTROLLED, INADEQUATE ANTICOAGULATION # RECENT ACUTE COMMUNITY-ACQUIRED PNEUMONIA, RESOLVING WELL WITH ONGOING ANTIBIOTICS # TYPE 2 DIABETES MELLITUS ON ORAL MEDICATIONS # HISTORY OF BREAST CANCER IN REMISSION # RECENT MINOR PELVIC FRACTURE, MAKING AMBULATION DIFFICULT At this point the patient's neurologic symptoms have completely resolved and this is a true TIA lasting less than 15 minutes. Her left foot symptoms do persist however they are improving over time even before she arrived here. By my examination and comparing with what I have heard from doctors Cecilio and Sandeep I believe that she may actually be continuing to improve here in the ER on heparin drip. The TIA episode certainly gives her higher risk of bleeding complications if she were to receive tPA for her leg. 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 Dr Hopkins here has spoken to Dr Fabian the vasuclar surgeon at [facility], who believes she will not likely recover well without a procedure (ie w heparin alone). He is recommending we send her to [facility]" today so that he can evaluate her. PLANS: -admission to intensive care unit while I am arranging for transfer to [facility] -continue heparin drip for now -continue to follow her leg very closely for any signs of worsening ischemia -hold Coumadin and follow her INR -today should be her last dose of Levaquin -follow her respiratory symptoms closely -Close follow-up of her blood sugars and management with emphasis on avoiding hypoglycemia and keeping the sugars in reasonable range with goal of 150-180 -when she is able to mobilize will have PT and OT see her with her recent fracture I have reviewed the patient's case in detail with Dr. Tylor Hopkins and Chino Hernandes I have reviewed the patient's past medical records as part of this assessment, including her previous hospital admission with physician notes, images, lab results. Objective: Vital Signs Temp Pulse Resp BP Pulse Ox 36.8 C 78 16 135/75 H 93 08/31/16 10:59 08/31/16 14:29 08/31/16 14:29 08/31/16 14:29 08/31/16 14:29 PT 19.7 SEC (12.0-15.0) H 08/31/16 11:04 INR 1.67 (0.83-1.16) H 08/31/16 11:04 ICD10 Worksheet Patient Problems: Problems Problem Status Diagnosed Popliteal artery occlusion, left Acute TIA (transient ischemic attack) Acute Pneumonia Acute
--- NOTE | 2016-08-31 17:28 | PDIAF ---
- Diagnosis Diagnosis: acute arterial occlusion L leg; tia Code Status: Full Code - Medication Management Discharge Medications: Medications to Continue on Transfer Albuterol [Ventolin Hfa Inhaler] 1 - 2 puffs IH Q4HRS PRN 08/21/16 [Last Taken 08/29/16] Anastrozole [Arimidex 1 mg (*)] 1 mg PO DAILY 08/21/16 [Last Taken 08/31/16] Aspirin EC [Aspirin EC 81 mg (*)] 81 mg PO DAILY 08/21/16 [Last Taken 08/31/16] Atenolol [Tenormin 25 mg (*)] 12.5 mg PO DAILY 08/21/16 [Last Taken 08/31/16] Digoxin [Lanoxin 125 mcg (RX)] 125 mcg PO DAILY10 08/21/16 [Last Taken 08/30/16] Gabapentin [Neurontin 300 MG (*)] 300 mg PO BID 08/21/16 [Last Taken 08/31/16] Levothyroxine [Synthroid 25 mcg (*)] 25 mcg PO DAILY06 08/21/16 [Last Taken ] Mometasone/Formoterol [Dulera 200 Mcg/5 Mcg Inhaler] 2 puffs IH BID 08/21/16 [ Last Taken 08/31/16 08:00] Multivitamins [Multivitamin (*)] 1 each PO DAILY 08/21/16 [Last Taken 08/31/16] Omeprazole [Prilosec 20 mg] 20 mg PO BID 08/21/16 [Last Taken 08/31/16] Simvastatin 40 mg PO HS 08/21/16 [Last Taken 08/30/16] glipiZIDE [Glipizide] 2.5 mg PO DAILY 08/21/16 [Last Taken 08/31/16] oxyCODONE/APAP 5/325 [Percocet 5/325 (*)] 1 - 2 tab PO HS PRN 08/21/16 [Last Taken 08/30/16 17:00 1 TAB] Ipratropium/Albuterol [Duoneb (*)] 3 ml IH Q6HRS PRN #0 deyvial 08/23/16 [Last Taken 08/30/16 05:30] Acetaminophen [Tylenol 325mg (*)] 650 mg PO Q4HRS PRN #0 tab 08/31/16 [Last Taken Unknown] Heparin/Dextrose [Heparin 50 Units/ml (Premix) (*)] 500 ml IV CONT #0 bag [Last Taken Unknown] Sennosides/Docusate Sodium [Senna-Docusate Sodium Tablet] 1 each PO BID [Last Taken 08/31/16] Discharge Medications: Refer to the Discharge Home Medication list for PRN reason.
--- NOTE | 2016-08-31 17:32 | PDDCSUM ---
Discharge Summary Discharge Summary: DISCHARGE SUMMARY NOTE DISCHARGE DIAGNOSES: -acute arterial occlusion left leg and foot -TIA occurred on the day prior to admission -Chronic rate controlled atrial fibrillation -Inadequate anticoagulation CONSULTANTS: Dr. Tylor Hopkins of interventional radiology PROCEDURES: CT scan of abdomen pelvis legs with angiography and vascular runoff HOSPITAL COURSE SUMMARY: The patient was admitted to the hospital with acute arterial occlusion of her left leg probably from atrial fibrillation. She also had a TIA the night before. The patient was with a threatened leg but otherwise in stable condition with a normal neurologic examination. It was felt that she required urgent attention for her leg as there was some threat, however we did not have vascular surgeon education assistant here to treat that at this time. She had her TIA yesterday and it was not felt safe to give her tPA to do an interventional radiology approach. Dr. whitman did consult with the vascular surgery team at [facility] where the patient had a previous arterial embolectomy. They did recommend transfer to their center and the patient is having arrangements made at this time for transfer to [facility]. There been no further complications during her hospital stay here so far. She is on heparin drip, without bleeding, and her cardiac and renal function are stable. Dr. Fabian is the accepting vascular surgeon at [facility]. Greater than 35 minutes bedside and care coordination time today
[2016-08-31 18:35] VITALS: BP 124/66; PULSE 77; RESP 20; O2SAT 92
[2016-08-31] MEDS ORDERED: SENNOSIDES/DOCUSATE SODIUM TAB PO SCH (21:00)
[2016-08-31] MEDS ORDERED: ATORVASTATIN CALCIUM 20 MG TAB PO SCH (21:00)
[2016-08-31] MEDS ORDERED: Mometasone/Formoterol [Dulera 200 Mcg/5 Mcg Inhaler] IH SCH (21:00)
[2016-08-31] MEDS ORDERED: GABAPENTIN 300 MG CAP PO SCH (21:00)
[2016-08-31] MEDS ORDERED: PANTOPRAZOLE SODIUM 40 MG TAB PO SCH (21:00)
[2016-09-01] MEDS ORDERED: LEVOTHYROXINE 25 MCG TAB PO SCH (06:00)
[2016-09-01] MEDS ORDERED: MULTIVITAMINS 1 EACH TAB PO SCH (09:00)
[2016-09-01] MEDS ORDERED: ATENOLOL 25 MG TAB PO SCH (09:00)
[2016-09-01] MEDS ORDERED: ANASTROZOLE 1 MG TAB PO SCH (09:00)
[2016-09-01] MEDS ORDERED: glipiZIDE 5 MG TAB PO SCH (09:00)
[2016-09-01] MEDS ORDERED: ASPIRIN EC 81 MG TAB PO SCH (09:00)
[2016-09-01] MEDS ORDERED: DIGOXIN 125 MCG TAB PO SCH (10:00)
== END 2016-08-31 18:00 | disposition short-term general hospital (02) | DRG 300 ==
LOC: EDBD → EDUNIT# → F2N 15:12
PROVIDERS: ADMIT Internal Medicine; ATTEND Internal Medicine
DX: I74.3 Embolism and thrombosis of arteries of the lower extremities (principal); G45.9 Transient cerebral ischemic attack, unspecified; I48.91 Unspecified atrial fibrillation; E11.9 Type 2 diabetes mellitus without complications; J44.9 Chronic obstructive pulmonary disease, unspecified; I10 Essential (primary) hypertension; Z85.3 Personal history of malignant neoplasm of breast; Z79.01 Long term (current) use of anticoagulants; Z87.891 Personal history of nicotine dependence; Z87.01 Personal history of pneumonia (recurrent)
CPT/HCPCS: 96365; J1644

== ENCOUNTER → 2016-12-24 | Outpatient (CLI) | payer OTHER | LOC: FIMAGING 12:16 | PROVIDERS: ATTEND Internal Medicine Infectious Disease | DX: A43.0 Pulmonary nocardiosis (principal); J90 Pleural effusion, not elsewhere classified; J98.11 Atelectasis; I51.7 Cardiomegaly ==

== ENCOUNTER 2017-03-17 09:26 | Emergency (ER) | payer OTHER ==
[2017-03-17 09:42] VITALS: TEMP 97.7
--- NOTE | 2017-03-17 10:43 | CPEKG ---
Heart Rate: 67 RR Interval: 896 QRSD Interval: 88 QT Interval: 372 QTC Interval: 393 QRS [place]: -44 T Wave [place]: 150 EKG Severity - ABNORMAL ECG - EKG Impression: INCOMPLETE ANALYSIS DUE TO MISSING DATA IN PRECORDIAL LEAD(S) EKG Impression: ATRIAL FIBRILLATION, V-RATE 51-79 EKG Impression: LEFT AXIS DEVIATION EKG Impression: PROBABLE LVH WITH SECONDARY REPOL ABNRM EKG Impression: ANTERIOR Q WAVES, POSSIBLY DUE TO LVH Electronically Signed By: Tylor Lopez 17-Mar-2017 11:12:15
[2017-03-17 11:03] LABS: COLOR PALE YELLOW; LEUKOCYTE ESTERASE,URINE NEGATIVE (NEGATIVE); NITRITE,URINE NEGATIVE (NEGATIVE)
[2017-03-17 11:03] LABS: % IMMATURE GRANULYOCYTES 0.5 % (0.0-1.1); ABSOLUTE IMMATURE GRANULOCYTES 0.04 10^3/uL (0.00-0.10); ADD DIFF? NO; ADD MORPH? NO; ADD SCAN? NO; ATYPICAL LYMPHOCYTE FLAG 10 (0-99); FRAGMENT RBC FLAG 0 (0-99); HEMATOCRIT 37.5 % (38.0-47.0); HEMOGLOBIN 12.5 g/dL (12.6-16.3); LEFT SHIFT FLG 0 (0-99); LIPEMIA HEMOLYSIS FLAG 80 (0-99); MEAN CELL HEMOGLOBIN 31.7 pg (27.9-34.1); MEAN CELL HEMOGLOBIN CONCENTR. 33.3 g/dL (32.4-36.7); MEAN CELL VOLUME 95.2 fL (81.5-99.8); MEAN PLATELET VOLUME 9.7 fL (8.7-11.7); PLATELET CLUMPS FLAG 10 (0-99); PLATELET COUNT 246 10^3/uL (150-400); RED BLOOD CELL COUNT 3.94 10^6/uL (4.18-5.33); RED CELL DISTRIBUTION WIDTH 13.4 % (11.5-15.2)
[2017-03-17 11:06] LABS: ALANINE AMINOTRANSFERASE 23 IU/L (9-52); ALBUMIN 3.8 g/dL (3.5-5.0); ALKALINE PHOSPHATASE 69 IU/L (38-126); ANION GAP 13 mEq/L (8-16); APTT 29.3 SEC (23.0-38.0); ASPARTATE AMINOTRANSFERASE 24 IU/L (14-46); BILIRUBIN,TOTAL 0.8 mg/dL (0.1-1.4); BILIRUBIN-CONJUGATED 0.4 mg/dL (0.0-0.5); BILIRUBIN-UNCONJUGATED 0.4 mg/dL (0.0-1.1); CALCIUM 9.7 mg/dL (8.5-10.4); CARBON DIOXIDE 26 mEq/l (22-31); CHLORIDE 102 mEq/L (97-110); CREATININE 0.9 mg/dL (0.6-1.0); GLOMERULAR FILTRATION RATE 59; GLUCOSE 130 mg/dL (70-100); INR 1.22 (0.83-1.16); POTASSIUM 3.9 mEq/L (3.5-5.2); PROTIME(PATIENT) 15.4 SEC (12.0-15.0); SODIUM 141 mEq/L (134-144); TOTAL PROTEIN 6.5 g/dL (6.3-8.2)
[2017-03-17 11:06] LABS: RBC,URINE NONE SEEN /hpf (0-3); WBC,URINE 0-1 /hpf (0-3)
[2017-03-17 11:17] LABS: TROPONIN I < 0.012 ng/mL (0-0.034)
--- NOTE | 2017-03-17 11:28 | EDPHY ---
H & P Stated Complaint: transient low oxygen over last 4 days/dependant edema HPI/ROS: CHIEF COMPLAINT: Intermittent hypoxia, weakness, lower extremity edema HISTORY OF PRESENT ILLNESS: Patient complains of intermittent hypoxemia at rest. She has a pulse oximeter at home that she uses. He says that it occasionally drops to 88 or 90%. This is read been unpredictable. Asymptomatic when she knows of. He she has no chest pain or shortness of breath. She does have some baseline COPD symptoms that have unchanged. She also complains of some generalized fatigue and feeling tired more often than not. She has no fever or chills. 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 She has been treated for this and reports resolution but is concerned because of the oxygen. She associates all of the above complaints with lower extremity edema. The edema accumulated throughout day, is dependent symmetrically in the lower extremities, and resolved overnight. It is non erythematous. Nonpainful edema. No other associated complaints or modifying factors REVIEW OF SYSTEMS: Ten systems reviewed and are negative unless otherwise noted in the HPI PAST MEDICAL HISTORY: Reviewed. Significant for COPD, atrial fibrillation and edema SOCIAL HISTORY: Previous 30 pack history of smoking many years ago. No alcohol. Lives in assisted living at [facility] FAMILY HISTORY: Noncontributory EXAMINATION General Appearance: Alert, no distress Head: normocephalic, atraumatic Eyes: Pupils equal and round, no conjunctival pallor or injection ENT, Mouth: Mucous membranes moist Neck: Normal inspection, supple, non-tender Respiratory: Lungs are clear to auscultation. No wheezing, rhonchi or crackles Cardiovascular: Irregularly irregular rhythm with regular rate. Systolic murmur Gastrointestinal: Abdomen is soft and nontender Back: non-tender, no bony abnormalities Neurological: A&O, nonfocal, normal gait. GCS 15. Skin: Warm and dry, no rash. No petechiae or purpura. Extremities: Nontender, mild bilateral pedal edema. Range of motion intact and symmetric Psychiatric: Mood and affect normal DIFFERENTIAL DIAGNOSES: Including but not limited to CHF exacerbation, volume overload, dehydration, electrolyte disturbance, pneumonia, pleural effusion, weakness, UTI MDM: 10:50 a.m. Intermittent room air hypoxia with intermittent peripheral edema. She is also feeling weak and fatigued. No chest pain. Vital signs are stable upon examination. Laboratory studies have been ordered. EKG is unremarkable with baseline atrial fibrillation, rate controlled. She is in no acute distress. I will taking laboratory studies, chest x-ray, urine and will ambulate her to check her exertional pulse oximetry. 11:45 a.m. Laboratory studies are within normal limits with exception of a mildly elevated BNP. She has ambulated well without any hypoxemia. She has no chest pain. Vital signs remained stable. Recommend she follow up with her net washer and primary care physician to discuss her medication reconciliation, and potentially adjusting her diuretic. She is ambulatory without assistance. She is wanting to be discharged home. I do feel she is stable to do so. We discussed return to ED precautions. Both the patient and son are comfortable with this plan. SUPERVISION: Patient was evaluated in conjunction with the supervising physician. Please see their note for details. Source: Patient, Family Exam Limitations: No limitations - Personal History Current Tetanus/Diphtheria Vaccine: Yes - Medical/Surgical History Hx Asthma: No Hx Chronic Respiratory Disease: Yes Hx Diabetes: Yes Hx Cardiac Disease: Yes Hx Renal Disease: No Hx Cirrhosis: No Hx Alcoholism: No Hx HIV/AIDS: No Hx Splenectomy or Spleen Trauma: No Other PMH: med- Afib, DM, peripheral neuropathy, high cholesterol, GERD, COPD, DVT left, hypothyroidism, HTN, breast CA, diverticulitis. SURG- right lumpectomy - Social History Smoking Status: Former smoker Constitutional: Initial Vital Signs Temperature (C) 97.7 F 03/17/17 09:39 Heart Rate 65 03/17/17 09:39 Respiratory Rate 17 03/17/17 09:39 Blood Pressure 114/55 L 03/17/17 09:39 O2 Sat (%) 94 03/17/17 09:39 O2 Delivery Mode Room Air Allergies/Adverse Reactions: latex Allergy (Verified 03/17/17 09:35) procaine Allergy (Verified 03/17/17 09:35) procaine HCl [From Novocain] Allergy (Verified 03/17/17 09:35) Sulfa (Sulfonamide Antibiotics) Allergy (Verified 03/17/17 09:35) Home Medications: Medication Instructions Recorded Albuterol [Ventolin Hfa Inhaler] 1 - 2 puffs IH Q4HRS PRN 08/21/16 Anastrozole [Arimidex 1 mg (*)] 1 mg PO DAILY 08/21/16 Atenolol [Tenormin 25 mg (*)] 12.5 mg PO DAILY 08/21/16 Digoxin [Lanoxin 125 mcg (RX)] 125 mcg PO DAILY10 08/21/16 Gabapentin [Neurontin 300 MG (*)] 300 mg PO BID 08/21/16 Levothyroxine [Synthroid 25 mcg 25 mcg PO DAILY06 08/21/16 (*)] Multivitamins [Multivitamin (*)] 1 each PO DAILY 08/21/16 Omeprazole [Prilosec 20 mg] 20 mg PO BID 08/21/16 Simvastatin 40 mg PO HS 08/21/16 oxyCODONE/APAP 5/325 [Percocet 1 - 2 tab PO HS PRN 08/21/16 5/325 (*)] Ipratropium/Albuterol [Duoneb (*)] 3 ml IH Q6HRS PRN #0 deyvial 08/23/16 Acetaminophen [Tylenol 325mg (*)] 650 mg PO Q4HRS PRN #0 tab 08/31/16 Sennosides/Docusate Sodium 1 each PO BID 08/31/16 [Senna-Docusate Sodium Tablet] Eliquis 03/17/17 Medical Decision Making - Diagnostics Imaging Results: Imaging Impressions Chest X-Ray 03/17/17 10:53 Impression: Underlying COPD and moderate cardiac enlargement, without acute abnormality.. - Data Points Laboratory Results: Laboratory Results 03/17/17 10:18 03/17/17 10:18 03/17/17 03/17/17 03/17/17 Unknown 10:18 10:18 WBC RBC Hgb Hct MCV MCH MCHC RDW Plt Count MPV Neut % (Auto) Lymph % (Auto) Hill % (Auto) Eos % (Auto) Baso % (Auto) Nucleat RBC Rel Count Absolute Neuts (auto) Absolute Lymphs (auto) Absolute Monos (auto) Absolute Eos (auto) Absolute Basos (auto) Absolute Nucleated RBC Immature Gran % Immature Gran # PT 15.4 SEC H SEC (12.0-15.0) INR 1.22 H (0.83-1.16) APTT 29.3 SEC SEC (23.0-38.0) Sodium 141 mEq/L mEq/L (134-144) Potassium 3.9 mEq/L mEq/L (3.5-5.2) Chloride 102 mEq/L mEq/L (97-110) Carbon Dioxide 26 mEq/l mEq/l (22-31) Anion Gap 13 mEq/L mEq/L (8-16) BUN 16 mg/dL mg/dL (7-23) Creatinine 0.9 mg/dL mg/dL (0.6-1.0) Estimated GFR 59 Glucose 130 mg/dL H mg/dL (70-100) Calcium 9.7 mg/dL mg/dL (8.5-10.4) Total Bilirubin 0.8 mg/dL mg/dL (0.1-1.4) Conjugated Bilirubin 0.4 mg/dL mg/dL (0.0-0.5) Unconjugated Bilirubin 0.4 mg/dL mg/dL (0.0-1.1) AST 24 IU/L IU/L (14-46) ALT 23 IU/L IU/L (9-52) Alkaline Phosphatase 69 IU/L IU/L (38-126) Troponin I < 0.012 ng/mL ng/mL (0-0.034) NT-Pro-B Natriuret Pep 2650 pg/mL H pg/mL (0-450) Total Protein 6.5 g/dL g/dL (6.3-8.2) Albumin 3.8 g/dL g/dL (3.5-5.0) Lipase 72.0 IU/L IU/L (23-300) Urine Color PALE YELLOW Urine Appearance CLEAR Urine pH 6.0 (5.0-7.5) Ur Specific [place] 1.002 (1.002-1.030) Urine Protein NEGATIVE (NEGATIVE) Urine Ketones NEGATIVE (NEGATIVE) Urine Blood NEGATIVE (NEGATIVE) Urine Nitrate NEGATIVE (NEGATIVE) Urine Bilirubin NEGATIVE (NEGATIVE) Urine Urobilinogen NEGATIVE EU EU (0.2-1.0) Ur Leukocyte Esterase NEGATIVE (NEGATIVE) Urine RBC NONE SEEN /hpf /hpf (0-3) Urine WBC 0-1 /hpf /hpf (0-3) Ur Epithelial Cells NONE SEEN /lpf /lpf (NONE-1+) Urine Glucose NEGATIVE (NEGATIVE) 03/17/17 10:18 WBC 7.52 10^3/uL 10^3/uL (3.80-9.50) RBC 3.94 10^6/uL L 10^6/uL (4.18-5.33) Hgb 12.5 g/dL L g/dL (12.6-16.3) Hct 37.5 % L % (38.0-47.0) MCV 95.2 fL fL (81.5-99.8) MCH 31.7 pg pg (27.9-34.1) MCHC 33.3 g/dL g/dL (32.4-36.7) RDW 13.4 % % (11.5-15.2) Plt Count 246 10^3/uL 10^3/uL (150-400) MPV 9.7 fL fL (8.7-11.7) Neut % (Auto) 57.9 % % (39.3-74.2) Lymph % (Auto) 29.5 % % (15.0-45.0) Hill % (Auto) 8.6 % % (4.5-13.0) Eos % (Auto) 2.4 % % (0.6-7.6) Baso % (Auto) 1.1 % % (0.3-1.7) Nucleat RBC Rel Count 0.0 % % (0.0-0.2) Absolute Neuts (auto) 4.35 10^3/uL 10^3/uL (1.70-6.50) Absolute Lymphs (auto) 2.22 10^3/uL 10^3/uL (1.00-3.00) Absolute Monos (auto) 0.65 10^3/uL 10^3/uL (0.30-0.80) Absolute Eos (auto) 0.18 10^3/uL 10^3/uL (0.03-0.40) Absolute Basos (auto) 0.08 10^3/uL 10^3/uL (0.02-0.10) Absolute Nucleated RBC 0.00 10^3/uL 10^3/uL (0-0.01) Immature Gran % 0.5 % % (0.0-1.1) Immature Gran # 0.04 10^3/uL 10^3/uL (0.00-0.10) PT INR APTT Sodium Potassium Chloride Carbon Dioxide Anion Gap BUN Creatinine Estimated GFR Glucose Calcium Total Bilirubin Conjugated Bilirubin Unconjugated Bilirubin AST ALT Alkaline Phosphatase Troponin I NT-Pro-B Natriuret Pep Total Protein Albumin Lipase Urine Color Urine Appearance Urine pH Ur Specific [place] Urine Protein Urine Ketones Urine Blood Urine Nitrate Urine Bilirubin Urine Urobilinogen Ur Leukocyte Esterase Urine RBC Urine WBC Ur Epithelial Cells Urine Glucose Departure - Departure Disposition: Home, Routine, Self-Care Clinical Impression: Peripheral edema CHF (congestive heart failure) Qualifiers: Congestive heart failure type: systolic Congestive heart failure chronicity: unspecified congestive heart failure chronicity Qualified Code(s): I50.20 - Unspecified systolic (congestive) heart failure Condition: Good Instructions: Heart Failure (ED), Leg Edema (ED) Additional Instructions: 1. Follow up net washer and primary care physician 2. Return to the ER for any chest pain 3. Return to the ER for any shortness of breath or ongoing weakness Referrals: NOT,SURE [Other] - As per Instructions Miguelito Gooden MD [Medical Doctor] - As per Instructions Karuna Motta MD [Medical Doctor] - As per Instructions
[2017-03-17 12:17] VITALS: BP 145/62; PULSE 72; RESP 18; O2SAT 93
== END 2017-03-17 12:16 | disposition home or self-care (01) ==
DX: I50.20 Unspecified systolic (congestive) heart failure (principal); R60.0 Localized edema; E11.9 Type 2 diabetes mellitus without complications; J44.9 Chronic obstructive pulmonary disease, unspecified; I11.0 Hypertensive heart disease with heart failure; Z79.01 Long term (current) use of anticoagulants; Z85.3 Personal history of malignant neoplasm of breast; Z87.891 Personal history of nicotine dependence; Z91.040 Latex allergy status